=== PATIENT | male | born 1950 | race Caucasian/White ===

== ENCOUNTER → 2016-11-13 | Outpatient (CLI) | payer OTHER, MEDICARE ==
--- NOTE | 2016-11-15 13:20 | REP ---
Whole body PET CT scan: Any CT of the chest from [facility] reportedly identified a right upper lobe lung nodule. The CT is not available for review. On the CT accompanying the PET scan today there is a nodule in the upper lobe of the right lung. Whole body PET CT scanning is performed from skull base to the upper thighs: Neck and supraclavicular areas: There are no hypermetabolic foci. Chest: The right upper lobe lung nodule demonstrates non hypermetabolic uptake with a standard uptake value of 2.1. There are no hypermetabolic foci in the chest elsewhere. Abdomen, pelvis and upper thighs: There are no hypermetabolic foci. Impression: There are no hypermetabolic foci. The right upper lobe lung nodule demonstrates non hypermetabolic uptake. The study is performed with 10 mCi of F 18 Signed by Azam Aiken MD 11/15/2016 10:02 A
== END ==
LOC: M PLARAD 14:50
PROVIDERS: ATTEND Nurse Practitioner Adult Health
DX: R91.8 Other nonspecific abnormal finding of lung field (principal)
CPT/HCPCS: 78815; A9552